=== PATIENT | female | born 1980 | race Native Hawaiian/Other Pacific Islander ===

== ENCOUNTER 2019-01-03 12:22 | Outpatient (CLI) | payer OTHER | END 2019-01-03 12:25 | disposition short-term general hospital (02) | LOC: AMB 12:22 | DX: M25.512 Pain in left shoulder (principal); M79.604 Pain in right leg; V59.40XA Driver of pick-up truck or van injured in collision with unspecified motor vehicles in traffic accident, initial encounter; Y92.413 State road as the place of occurrence of the external cause | CPT/HCPCS: A0425; A0429 ==

== ENCOUNTER 2019-01-03 12:30 | Emergency (ER) | payer OTHER ==
[~2019-01-03] VITALS: Ht 175.3 cm; Wt 61.7 kg
[2019-01-03 15:08] VITALS: BP 120/83; TEMP 98.3
== END 2019-01-03 15:08 | disposition home or self-care (01) ==
LOC: ED 12:30
DX: S16.1XXA Strain of muscle, fascia and tendon at neck level, initial encounter (principal); V89.2XXA Person injured in unspecified motor-vehicle accident, traffic, initial encounter
CPT/HCPCS: 81025; 99283

== ENCOUNTER 2020-06-17 07:38 | Outpatient (CLI) | payer OTHER | END 2020-06-17 19:42 | disposition home or self-care (01) | LOC: LAB 07:38 | PROVIDERS: ATTEND Nurse Practitioner Family | DX: R05 Cough (principal); R50.9 Fever, unspecified; R06.02 Shortness of breath; Z11.59 Encounter for screening for other viral diseases | CPT/HCPCS: 87635; G2023; U0003 ==

== ENCOUNTER 2021-05-26 08:21 | Outpatient (CLI) | payer OTHER | END 2021-05-26 19:10 | disposition home or self-care (01) | LOC: LAB 08:21 | PROVIDERS: ATTEND Nurse Practitioner Family | DX: R05.9 Cough, unspecified (principal); R09.81 Nasal congestion; Z20.822 Contact with and (suspected) exposure to COVID-19 | CPT/HCPCS: 87635; U0003 ==